=== PATIENT | female | born 1945 | race Caucasian/White ===

== ENCOUNTER 2020-07-12 22:19 | Emergency (ER) | payer MEDICARE, OTHER ==
[~2020-07-12] VITALS: Ht 149.9 cm; Wt 70.5 kg
[2020-07-12 22:52] LABS: HEMATOCRIT 29.4 % (37.0-47.0); HEMOGLOBIN 8.4 g/dl (12.0-16.0); IMMATURE GRANULOCYTES 0.2 % (0.0-5.0); MEAN CELL VOLUME 70.8 fL CALC (80.0-100.0); MEAN CORPUSCULAR HGB 20.2 pG CALC (26.0-32.0); MEAN CORPUSCULAR HGB CONC 28.6 g/dL CAL (32.0-36.0); NEUT# 5.3 thou/uL (2.00-7.15); RED BLOOD COUNT 4.15 mill/uL (4.20-5.60)
[2020-07-12 23:07] LABS: ALBUMIN 4.4 g/dL (3.2-5.0); ALKALINE PHOSPHATASE 69 u/l (38-126); ANION GAP 15 (6-22 (CALC)); BILIRUBIN, TOTAL 0.3 mg/dL (0.0-1.4); BUN 16 mg/dL (8-23); BUN/CREATININE RATIO 14 (12-20 (CALC)); CARBON DIOXIDE 26 mmol/l (22-30); CHLORIDE 95 mmol/l (95-108); CREATININE 1.1 mg/dL (0.5-1.0); GFR 49 ML/MIN (>=60 (CALC)); GFR FOR AFR.AMER. 59 ML/MIN (>=60 (CALC)); POTASSIUM 4.3 mmol/l (3.5-5.1); SGOT/AST 25 u/l (9-36); SODIUM 133 mmol/l (137-146); TOTAL PROTEIN 7.7 g/dL (6.3-8.2)
[2020-07-12] MEDS ORDERED: GLIPIZIDE10 MG PO (23:31)
[2020-07-12] MEDS ORDERED: LIPITOR40 M1 PO (23:31)
[2020-07-12] MEDS ORDERED: PROTONIX40 M2 PO (23:32)
[2020-07-12] MEDS ORDERED: CARVEDILOL25 MG PO (23:32)
[2020-07-12] MEDS ORDERED: METFORMIN HCL1000 M1 PO (23:33)
[2020-07-12] MEDS ORDERED: LISINOP/HCTZ1 TA1 PO (23:33)
[2020-07-12] MEDS ORDERED: OXYBUTYNIN CHLO15 MG PO (23:34)
[2020-07-12] MEDS ORDERED: ASPIRIN81 MG PO (23:35)
[2020-07-12] MEDS ORDERED: CENTRUM SILVER PO (23:36)
[2020-07-12] MEDS ORDERED: CRANBERRY CONC500 MG PO (23:37)
[2020-07-12] MEDS ORDERED: BIOTIN5000 MC2 PO (23:38)
[2020-07-12] MEDS ORDERED: CALCIUM600 M1 PO (23:41)
[2020-07-13 01:10] VITALS: BP 207/90
== END 2020-07-13 01:10 | disposition short-term general hospital (02) ==
LOC: ED 22:19
PROVIDERS: Emergency Medicine
DX: G45.9 Transient cerebral ischemic attack, unspecified (principal); Z20.822 Contact with and (suspected) exposure to COVID-19